=== PATIENT | male | born 1945 | race Caucasian/White ===

== ENCOUNTER 2017-07-30 10:18 | Outpatient (CLI) | payer MEDICARE ==
[2017-07-30 19:37] LABS: BASOPHILS # (AUTO) 0.1 10^3/uL (0.0-0.1); EOSINOPHILS # (AUTO) 0.2 10^3/uL (0.0-0.7); HCT - HEMATOCRIT 52.8 % (42.0-52.0); HGB - HEMOGLOBIN 17.8 g/dL (14.0-18.0); LYMPHOCYTES # (AUTO) 2.3 10^3/uL (1.5-3.5); LYMPHOCYTES % (AUTO) 37.4 %; MEAN CORPUSCULAR HEMOGLOBIN 29.7 pg (27.0-31.0); MEAN CORPUSCULAR HGB CONC 33.7 g/dL (32.0-36.0); MEAN CORPUSCULAR VOLUME 88.3 fL (80.0-94.0); MEAN PLATELET VOLUME 9.7 fL (7.4-11.4); MONOCYTES # (AUTO) 0.7 10^3/uL (0.0-1.0); MONOCYTES % (AUTO) 11.9 %; NEUTROPHILS # (AUTO) 2.8 10^3/uL (1.5-6.6); NEUTROPHILS % (AUTO) 45.7 %; NUCLEATED RED BLOOD CELLS AUTO 0.2 /100WBC; RED BLOOD COUNT 5.97 10^6/uL (4.70-6.10); RED CELL DISTRIBUTION WIDTH 14.8 % (12.0-15.0); UNCORRECTED WHITE BLOOD COUNT 6.1 x10^3/uL; WHITE BLOOD COUNT 6.1 x10^3/uL (4.8-10.8)
[2017-07-30 19:58] LABS: ALBUMIN/GLOBULIN RATIO 1.9 (1.0-2.2); BUN - BLOOD UREA NITROGEN 18 mg/dL (6-20); CALCIUM 9.2 mg/dL (8.5-10.3); CARBON DIOXIDE - CO2 28 mmol/L (21-32); CHLORIDE 106 mmol/L (101-111); CHOL/HDL RATIO 3.4 (<5.0); CHOLESTEROL 111 mg/dL; GFR - MDRD 73 (>89); GLUCOSE 102 mg/dL (70-100); HDL CHOLESTEROL 33 mg/dL; LDL/HDL RATIO 1.5 (<3.6); SODIUM 140 mmol/L (135-145); TOTAL PROTEIN 6.6 g/dL (6.7-8.2); TRIGLYCERIDES 150 mg/dL; VLDL CHOLESTEROL 30 mg/dL
== END 2017-07-30 10:19 | disposition home or self-care (01) ==
LOC: LAB.F 10:18
PROVIDERS: ATTEND Family Medicine
DX: I25.10 Atherosclerotic heart disease of native coronary artery without angina pectoris (principal)
CPT/HCPCS: 36415; 80053; 80061; 85025

== ENCOUNTER 2017-09-03 10:17 | Outpatient (CLI) | payer MEDICARE ==
[2017-09-03 17:58] LABS: BASOPHILS # (AUTO) 0.1 10^3/uL (0.0-0.1); BASOPHILS % (AUTO) 1.3 %; EOSINOPHILS # (AUTO) 0.2 10^3/uL (0.0-0.7); EOSINOPHILS % (AUTO) 3.3 %; HCT - HEMATOCRIT 54.6 % (42.0-52.0); HGB - HEMOGLOBIN 18.1 g/dL (14.0-18.0); LYMPHOCYTES # (AUTO) 2.6 10^3/uL (1.5-3.5); LYMPHOCYTES % (AUTO) 38.5 %; MEAN CORPUSCULAR HEMOGLOBIN 29.5 pg (27.0-31.0); MEAN CORPUSCULAR HGB CONC 33.1 g/dL (32.0-36.0); MEAN CORPUSCULAR VOLUME 89.2 fL (80.0-94.0); MONOCYTES # (AUTO) 0.8 10^3/uL (0.0-1.0); MONOCYTES % (AUTO) 12.3 %; NEUTROPHILS # (AUTO) 2.9 10^3/uL (1.5-6.6); NEUTROPHILS % (AUTO) 44.6 %; NUCLEATED RED BLOOD CELLS AUTO 0.1 /100WBC; RED BLOOD COUNT 6.12 10^6/uL (4.70-6.10); RED CELL DISTRIBUTION WIDTH 14.8 % (12.0-15.0); UNCORRECTED WHITE BLOOD COUNT 6.6 x10^3/uL; WHITE BLOOD COUNT 6.6 x10^3/uL (4.8-10.8)
[2017-09-03 20:58] LABS: PLATELET ESTIMATE, MANUAL NORMAL (130-450,000) (NORMAL); WBC MORPHOLOGY (MULTIPLE) 1+ REACTIVE LYMPHS (NORMAL)
== END 2017-09-03 10:18 | disposition home or self-care (01) ==
LOC: LAB.F 10:17
PROVIDERS: ATTEND Family Medicine
DX: D75.1 Secondary polycythemia (principal)
CPT/HCPCS: 36415; 85025

== ENCOUNTER 2019-08-14 13:05 | Outpatient (CLI) | payer MEDICARE, OTHER | END 2019-08-14 13:06 | disposition home or self-care (01) | LOC: RT 13:05 | PROVIDERS: ATTEND Internal Medicine Gastroenterology | DX: Z86.010 Personal history of colon polyps (principal) | CPT/HCPCS: 93005 ==

== ENCOUNTER 2019-08-25 09:17 | Day surgery (SDC) | payer MEDICARE, OTHER ==
[2019-08-25] MEDS ORDERED: fentaNYL 250 MCG/5 ML VIAL IVP ONE (09:18)
[2019-08-25] MEDS ORDERED: MIDAZOLAM 2 MG/2 ML VIAL IVP ONE (09:18)
[2019-08-25] MEDS ORDERED: LACTATED RINGERS 1,000 ML IV ONE ×3 (09:36→12:23)
[2019-08-25] MEDS ORDERED: LIDO GARGLE 30 ML BOTTLE ONE (11:34)
[2019-08-25] MEDS ORDERED: LIDO GARGLE 30 ML BOTTLE PO ONE (11:35)
[2019-08-25 12:54] VITALS: BP 119/70
== END 2019-08-25 09:18 | disposition home or self-care (01) ==
LOC: SDS 09:17
PROVIDERS: ATTEND Internal Medicine Gastroenterology
PROC: 0DBK8ZZ Excision of Ascending Colon, Via Natural or Artificial Opening Endoscopic (ICD-10-PCS; 2019-08-25)
PROC: 0DBL8ZZ Excision of Transverse Colon, Via Natural or Artificial Opening Endoscopic (ICD-10-PCS; 2019-08-25)
PROC: 0DB38ZX Excision of Lower Esophagus, Via Natural or Artificial Opening Endoscopic, Diagnostic (ICD-10-PCS; principal; 2019-08-25 10:45)
PROC: 0DB28ZX Excision of Middle Esophagus, Via Natural or Artificial Opening Endoscopic, Diagnostic (ICD-10-PCS; 2019-08-25 10:45)
DX: Z12.11 Encounter for screening for malignant neoplasm of colon (principal); K22.10 Ulcer of esophagus without bleeding; K44.9 Diaphragmatic hernia without obstruction or gangrene; D12.4 Benign neoplasm of descending colon; K63.5 Polyp of colon; R94.31 Abnormal electrocardiogram [ECG] [EKG]; E78.5 Hyperlipidemia, unspecified; I25.10 Atherosclerotic heart disease of native coronary artery without angina pectoris; D75.1 Secondary polycythemia; L30.9 Dermatitis, unspecified; H40.9 Unspecified glaucoma; Z79.82 Long term (current) use of aspirin; Z95.5 Presence of coronary angioplasty implant and graft
CPT/HCPCS: 43239; 45380; A9270; J3010; J7120

== ENCOUNTER 2019-10-20 08:00 | Day surgery (SDC) | payer MEDICARE, OTHER ==
[2019-10-20] MEDS ORDERED: LACTATED RINGERS 1,000 ML IV ONE (08:03)
[2019-10-20] MEDS ORDERED: LIDO GARGLE 30 ML BOTTLE ONE (08:31)
[2019-10-20] MEDS ORDERED: MIDAZOLAM 2 MG/2 ML VIAL IVP ONE (08:40)
[2019-10-20] MEDS ORDERED: fentaNYL 100 MCG/2 ML VIAL IVP ONE (08:40)
[2019-10-20 09:29] VITALS: BP 125/81
== END 2019-10-20 08:01 | disposition home or self-care (01) ==
LOC: SDS 08:00
PROVIDERS: ATTEND Internal Medicine Gastroenterology
PROC: 0DB38ZX Excision of Lower Esophagus, Via Natural or Artificial Opening Endoscopic, Diagnostic (ICD-10-PCS; principal; 2019-10-20 09:15)
DX: K21.0 Gastro-esophageal reflux disease with esophagitis (principal); Z79.899 Other long term (current) drug therapy
CPT/HCPCS: 43239; A9270; J7120

== ENCOUNTER 2020-07-21 08:10 | Outpatient (CLI) | payer OTHER ==
[2020-07-21 13:55] VITALS: BP 130/75
--- NOTE | 2020-07-21 13:55 | SLEEP CARE CONSULTATION ---
Information from patient questionnaire entered by Lina Harding. I have reviewed and concur with the information entered by Lina Harding. This document represents the service I personally performed and the decisions made by me, Jennifer Lemons ARNP. History of Present Illness Service Date and Time: 07/21/2020 0810 Reason for Visit: New patient Chief Complaint: reports: Snoring (only on back or right side), Observed pauses in breathing ( says so). denies: Insomnia, Unrefreshed sleep, Excessive daytime sleepiness, Fatigue Date of Onset: maybe a year or so Usual bedtime: 12 am Time it takes to fall asleep: 2 minutes Snores at night: Yes (sometimes) Observed to quit breathing while asleep: Yes (per ) Sleeps alone due to snoring: No Number of times waking at night: 1-2 Reasons for waking at night: reports: Bathroom. denies: Choking, Snoring, Gasping for air Toss, Turn, or Twitch while sleeping: No Recalls having dreams: Yes Usually gets out of bed at: 7-10 am Feels refreshed in the morning: Yes Morning headache: No Sleepy or fatigued during the day: Yes Ever fallen asleep while driving: No Takes day naps: Yes (sometimes) Dreams during day naps: No Prior sleep studies: No Additional HPI information: I had the pleasure of seeing JULIUS KING today regarding the possibility of him having a sleep disorder. His current complaints are observed pauses in yazmin thing and snoring. He states he is here because his has a CPAP machine and she has told him that he has had pauses in his breathing. He states he snores only if he sleeps on his back or right side. He denies unrefreshed sleep or daytime sleepiness. He states he does get up 1-2 times on average for the bathroom. He has a history of coronary heart disease. - Parasomnia Symptoms Ever been unable to move upon waking from sleep: No Walks in sleep: No Talks in sleep: No Ever acted out dreams in sleep: No Ever felt weak in the knees when startled or emotional: No Bothered by creepy, crawly, restless sensations in legs: No Problems with memory or concentration: No Subjective Initial [place] Sleepiness Scale score: 4 (in 2019) Past Medical History Past Medical History: reports: Coronary Heart Disease, Other (history of itching problems, no known cause). denies: Hypertension, Claustrophobia, Congestive Heart Failure, Diabetes, Arrythmia, Hypothyroidism, Anemia, Anxiety, Impotence, Depression, Mood disorder, GERD, Attention deficit Social History The patient's occupation is a Retried. Patient is and lives in [place]. Have you smoked in the past 12 months: No Alcohol use: Yes Alcohol amount and frequency: 2-3 drinks a day Caffeine use: No Family History Family history of sleep disordered breathing: No Family Hx Sleep Apnea: Mother: Snoring, Father: Snoring, Sibling: Snoring Allergies and Home Medications Drug allergies reviewed: Yes (NKDA) Home medication list reviewed: Yes Allergy and home medication list: atorvastatin metoprolol lisinopril gabapentin aspirin Review of Systems Cardiovascular: denies: high blood pressure, palpitations, chest pain, irregular heart rate or pulse, leg or foot swelling Respiratory: denies: shortness of breath, chronic cough Gastrointestinal: denies: heartburn, difficulty swallowing Urinary: denies: impotence Neurological: denies: headaches, seizure, head trauma, speech dysfunction, gait or balance problems Psychiatric: denies: Attention Deficit Hyperactivity, anxiety, depression, mood disorder, claustrophobia Ear/Nose/Throat: reports: dry mouth/throat (only if sleeps with mouth open), tonsillectomy, wisdom teeth removed (may still have a couple). denies: nasal congestion, sinus problems, nose bleeds, injury to nose Endocrine: denies: thyroid disease Musculoskeletal: denies: muscle pain or cramping, mobility problems Immunologic: reports: itching, allergies to food or environment (molds) Physical Exam Blood Pressure: 130/75 Cuff size: regular Heart Rate: 56 O2 Saturation: 96 Height: 6 ft 1.5 in Weight: 208 lb Body Mass Index: 27.1 BMI Classification: Overweight HEENT: No craniofacial malformation Nostrils: patent to airflow Turbinates: normal Septum: deviated left Mouth and throat: narrow oropharynx Soft palate: normal Hard palate: arched Uvula: normal Uvula visualization: 25% Mallampati Class III Tongue: normal in size Tonsils: absent bilaterally Chin and jaw: normal size and position Neck: normal w/o lymphadenopathy or thyromegaly Heart: regular rate and rhythm Lungs: clear bilaterally Impression and Plan 1. Suspected Obstructive Sleep Apnea-Hypopnea Syndrome, as suggested by a history of irregular snoring and observed cessation of breath while asleep. Patient is overweight and has a history of coronary heart disease. Narrow oropharynx and obesity are common predisposing factors for obstructive sleep apnea-hypopnea syndrome. I recommend proceeding to polysomnography to confirm the diagnosis and to assess severity. If the patient has significant sleep disordered breathing, a manual CPAP titration study will also be performed to find the optimal treatment pressure. I informed the patient of what the sleep studies involve and after some discussion, obtained agreement to proceed. The pathophysiology of obstructive sleep apnea-hypopnea syndrome was discussed with the patient and health risks of cardiovascular and cerebrovascular disease if not treated. AAS brochure for obstructive sleep apnea-hypopnea syndrome given and reviewed. Risks of drowsy driving discussed in detail and patient advised to avoid long distance driving and to tap puller at the first sign of drowsiness. Patient agreed to plan. * Schedule polysomnography +- manual CPAP titration study. * Avoid long distance driving or driving when feeling sleepy. * Avoid alcohol, sedative and muscle relaxant around bedtime. * Attempt to lose weight. * Review instructions provided by trained office staff on how to prepare for the sleep study. * Return for follow-up after sleep study completed. Visit Type: In Office Time Spent with Patient (minutes): 30 Provider Statement: I spent 100% of the Face to Face Visit with the patient with greater than 50% spent counseling the patient and coordination of care.
== END 2020-07-21 08:11 | disposition home or self-care (01) ==
LOC: SC 08:10 → MERGE 08:10 → SC 08:11
PROVIDERS: ATTEND Nurse Practitioner Family
DX: R06.81 Apnea, not elsewhere classified (principal); R06.83 Snoring; E66.3 Overweight; Z68.27 Body mass index [BMI] 27.0-27.9, adult; I25.10 Atherosclerotic heart disease of native coronary artery without angina pectoris
CPT/HCPCS: 99204; 99212

== ENCOUNTER 2020-08-19 19:30 | Outpatient (CLI) | payer OTHER | END 2020-08-19 23:59 | disposition home or self-care (01) | LOC: SC 19:30 | PROVIDERS: ATTEND Nurse Practitioner Family | DX: R06.83 Snoring (principal); R06.81 Apnea, not elsewhere classified; I51.9 Heart disease, unspecified | CPT/HCPCS: 95806 ==

== ENCOUNTER 2020-09-06 16:58 | Outpatient (CLI) | payer MEDICARE, OTHER ==
--- NOTE | 2020-09-06 17:20 | SLEEP CARE CONSULTATION ---
Information from patient questionnaire entered by Naveed Galdamez. I have reviewed and concur with the information entered by Naveed Galdamez. This document represents the service I personally performed and the decisions made by , Jennifer Lemons ARNP. History of Present Illness Service Date and Time: 09/06/20201657 Initial [place] Sleepiness Scale score: 4 (in 2019) Current [place] Sleepiness Scale score: 1 Additional HPI information: JULIUS KING returns for follow up and results of the recently performed home sleep study. The patient was informed of the following findings: Patient calculated AHI was 3.6 showing no significant sleep disordered breathing but he did have an elevated supine AHI of 7.7. His study quality was also considered fair due to a partial loss of airflow signal. I explained the pathophysiology behind obstructive sleep apnea. Patient does not have sleep apnea and was advised how weight gain could increase the risk of developing sleep apnea in the future. Patient does not have significant sleep disordered breathing but has elevated AHI in supine position so advised positional therapy. Methods to achieve positional management therapy were discussed; such as, positioning with pillows, wearing a T-shirt with tennis balls sewn into the back, Rematee shirt, Zzomba belt and Slumberbump belt. Pamphlets provided on how to obtain the commercially available products. Patient has light snoring. Snoring can be reduced by weight loss. Weight loss is best achieved with diet consult. Patient instructed to contact PCP for referral. Snoring can also be treated with an oral appliance from a dentist. Advised to check insurance coverage. In addition, an ENT evaluation can be do to see if other treatment is indicated. Sleep Study - Results Type of Sleep Study: Home sleep study Prior sleep studies: No Polysomnography/Home Sleep Study results: SLEEP TIME AND EFFICIENCY: The sleep study recording began at 11:07:13 PM and ended at 08:33:21 AM. Total recording time was 566.1 minutes. The total sleep time was 517.0 minutes. The sleep efficiency was 91.3 percent. The patient spent 148.6 minutes supine, and spent 368.4 minutes non-supine. The patients own estimate of sleep time was 9.40 hours. RESPIRATORY DATA: The AHI in this report is indexed to sleep time based on actigraphy. The AASM defines this as ELIEZER. The AHI on this type 3 Home Sleep Study may understate the AHI determined on a type 1 or 2 study, since EEG is not monitored resulting in the inability to score non-desaturating hypopneas. Based on 4% Calculation: The AHI4% calculation of 3.6 per hour of recording time was based on a total of 25 scored apneas and 6 scored hypopneas with 4% desaturations. Supine AHI4%: 7.7 per hour. Non-supine AHI4%: 2.0 per hour. Oxygen Summary: Patient's baseline O2 saturation was 95.0 %. The patient spent 4.3 minutes at an oxygen saturation less than 90%, and 0.9 minutes less than 85%. The desaturation index was 1.5 events per hour sleep time. The lowest saturation was 70.1 %. SNORING: The percent of the study time spent snoring was 0.0 %. The Snoring Count was 4 . The Snoring Index was 0.5 . PULSE RATE REVIEW: The mean heart rate was 65 beats per minute. The rate ranged from a low of 42 to a high of 94 beats per minute. DIAGNOSIS CODE: suspected Obstructive Sleep Apnea (ICD-10 G47.30) Allergies and Home Medications Drug allergies reviewed: Yes (NKDA) Home medication list reviewed: Yes (no changes) Review of Systems Review of systems same as previous: Yes (no changes) Physical Exam Heart Rate: 64 O2 Saturation: 95 Height: 6 ft 1.5 in Weight: 207 lb Body Mass Index: 26.9 BMI Classification: Overweight Impression and Plan 1. Suspected Obstructive Sleep Apnea-Hypopnea Syndrome, as suggested by a history of loud and irregular snoring, observed cessation of breath while asleep, and excessive daytime sleepiness. Patient has a history of coronary heart disease. Patient HST study quality fair due to partial loss of airflow signal during the study. We got a suboptimal study with an elevated supine AHI of 7.7 and non-supine AHI 2.0. I think we should repeat study in lab to obtain better quality study and adequate measurement of his sleep disordered breathing. Patient declined another study at this time. He was advised to inform any of his doctors/surgeon that he does have mild obstructive sleep apnea when sleeping supine to avoid complications with anesthesia. He was instructed to avoid sleeping supine to reduce his overall health risk from apnea. Since patients apnea is primarily in supine position, patient advised to try positional therapy and agreed with plan. Patient will follow up as needed or if he decides he would like to repeat a sleep study. 2. Snoring but no significant sleep disordered breathing. Patient advised that often weight loss will reduce snoring as well as apnea risk. An oral appliance can also be used for snoring. * Attempt to lose weight * Avoid alcohol consumption near bedtime * The patient is cautioned about driving until sleepiness is completely resolved. * Return as needed for follow up. Counseling Topics: Sleeping position Visit Type: In Office Time Spent with Patient (minutes): 18 Provider Statement: I spent 100% of the Face to Face Visit with the patient with greater than 50% spent counseling the patient and coordination of care.
== END 2020-09-06 16:59 | disposition home or self-care (01) ==
LOC: SC 16:58
PROVIDERS: ATTEND Nurse Practitioner Family
DX: R06.83 Snoring (principal); R06.81 Apnea, not elsewhere classified; G47.10 Hypersomnia, unspecified; I25.10 Atherosclerotic heart disease of native coronary artery without angina pectoris; E66.3 Overweight; Z68.26 Body mass index [BMI] 26.0-26.9, adult
CPT/HCPCS: 99213; G0463; 99212

== ENCOUNTER 2021-05-05 11:02 | Outpatient (CLI) | payer MEDICARE ==
[2021-05-05 15:24] LABS: CHOL/HDL RATIO 2.8 (<5.0); CHOLESTEROL 77 mg/dL; HDL CHOLESTEROL 28 mg/dL; LDL CHOLESTEROL,CALCULATED 29 mg/dL; TRIGLYCERIDES 101 mg/dL; VLDL CHOLESTEROL 20 mg/dL
== END 2021-05-05 11:03 | disposition home or self-care (01) ==
LOC: LAB.S 11:02
PROVIDERS: ATTEND Internal Medicine Cardiovascular Disease
DX: I25.10 Atherosclerotic heart disease of native coronary artery without angina pectoris (principal)
CPT/HCPCS: 36415; 80061; 83721

== ENCOUNTER 2021-06-29 10:42 | Outpatient (CLI) | payer MEDICARE ==
[2021-06-29 15:09] LABS: BASOPHILS # (AUTO) 0.1 10^3/uL (0.0-0.1); BASOPHILS % (AUTO) 1.5 %; EOSINOPHILS # (AUTO) 0.2 10^3/uL (0.0-0.7); EOSINOPHILS % (AUTO) 3.9 %; HCT - HEMATOCRIT 51.9 % (42.0-52.0); HGB - HEMOGLOBIN 17.7 g/dL (14.0-18.0); LYMPHOCYTES # (AUTO) 1.7 10^3/uL (1.5-3.5); LYMPHOCYTES % (AUTO) 31.5 %; MEAN CORPUSCULAR HEMOGLOBIN 30.4 pg (27.0-31.0); MEAN CORPUSCULAR HGB CONC 34.1 g/dL (32.0-36.0); MEAN PLATELET VOLUME 12.2 fL (7.4-11.4); MONOCYTES # (AUTO) 0.6 10^3/uL (0.0-1.0); MONOCYTES % (AUTO) 10.1 %; NEUTROPHILS # (AUTO) 2.8 10^3/uL (1.5-6.6); NEUTROPHILS % (AUTO) 52.1 %; PLT - PLATELET COUNT 158 10^3/uL (130-450); RED BLOOD COUNT 5.83 10^6/uL (4.70-6.10); RED CELL DISTRIBUTION WIDTH 14.7 % (12.0-15.0); WHITE BLOOD COUNT 5.4 x10^3/uL (4.8-10.8)
[2021-06-29 15:16] LABS: SLIDE REVIEW? Indicated
[2021-06-29 15:22] LABS: ALBUMIN 4.2 g/dL (3.2-5.5); ALBUMIN/GLOBULIN RATIO 1.8 (1.0-2.2); BILIRUBIN,TOTAL 1.1 mg/dL (0.2-1.0); CALCIUM 8.8 mg/dL (8.5-10.3); CREATININE 0.9 mg/dL (0.6-1.2); TOTAL PROTEIN 6.6 g/dL (6.7-8.2)
[2021-06-29 15:43] LABS: PLATELET ESTIMATE, MANUAL NORMAL (130-450,000) (NORMAL); PLATELET MORPHOLOGY 1+ GIANT PLATELETS (NORMAL); RBC MORPHOLOGY (MULTIPLE) NORMAL APPEARANCE (NORMAL); WBC MORPHOLOGY (MULTIPLE) NORMAL APPEARANCE (NORMAL)
== END 2021-06-29 10:43 | disposition home or self-care (01) ==
LOC: LAB.S 10:42
PROVIDERS: ATTEND Internal Medicine
DX: D75.1 Secondary polycythemia (principal); Z79.899 Other long term (current) drug therapy; Z12.5 Encounter for screening for malignant neoplasm of prostate
CPT/HCPCS: 36415; 80053; 82728; 85025; G0103; 84153

== ENCOUNTER 2024-05-02 18:02 | Outpatient (CLI) | payer MEDICARE | END 2024-05-02 23:59 | disposition EMS.NT | LOC: EMS 18:02 | DX: S51.011A Laceration without foreign body of right elbow, initial encounter (principal); W01.110A Fall on same level from slipping, tripping and stumbling with subsequent striking against sharp glass, initial encounter; Y93.01 Activity, walking, marching and hiking; Y92.008 Other place in unspecified non-institutional (private) residence as the place of occurrence of the external cause ==

== ENCOUNTER 2024-05-04 08:00 | Outpatient (CLI) | payer MEDICARE ==
--- NOTE | 2024-05-05 08:27 | XRAY Report ---
PROCEDURE: Hip w/Pelvis 2-3V RT INDICATIONS: CONTUSION OF RIGHT HIP TECHNIQUE: 2 views of the hip were acquired. COMPARISON: None. FINDINGS: Bones: No fractures or dislocations. No suspicious bony lesions. Moderate right hip joint degenerat ion. Bony prominence at the junction of the femoral head and neck suggesting CAM impingement. Mild left hip and bilateral sequela joint degeneration. Moderate degenerative disc and facet disease in the lower lumbar spine. Soft tissues: No suspicious soft tissue calcifications or masses. IMPRESSION: 1. Moderate degenerative joint disease. 2. 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 Reviewed by: Emilie Prasad MD on 05/05/2024 7:26 AM RAHUL Approved by: Emilie Prasad MD on 05/05/2024 7:26 AM RAHUL Station ID: [id number]
== END 2024-05-04 23:59 | disposition home or self-care (01) ==
LOC: DI.S 08:00
PROVIDERS: ATTEND Emergency Medicine
DX: M16.0 Bilateral primary osteoarthritis of hip (principal); M47.816 Spondylosis without myelopathy or radiculopathy, lumbar region; M51.36 Other intervertebral disc degeneration, lumbar region

== ENCOUNTER 2024-05-06 13:38 | Emergency (ER) | payer MEDICARE ==
--- NOTE | 2024-05-06 14:30 | ED Physician Documentation ---
History of Present Illness - Stated complaint Stated Complaint: GLF, LOWER BACK/PELVIS PX - Chief complaint Chief Complaint: Back Pain - Additonal information Additional information: 79-year-old male with history of Parkinson's, hypertension, hypercholesterolemia, glaucoma, appendectomy presents emergency department For ongoing right hip pain. Patient was seen at walk-in clinic a couple days ago where he had x-rays done and there was no acute findings or abnormalities. He has been on tramadol since then and pain has gotten worse to the right hip the point where he is now having a hard time ambulating although he still is able to ambulate into the emergency department. No new falls since then. Patient says a couple days ago he lost his balance he fell backward onto tile floor from 2 stairs up onto his right buttocks. No incontinence of bowel or bladder. PD PAST MEDICAL HISTORY - Past Medical History Past Medical History: Yes Cardiovascular: High cholesterol, Hypertension Respiratory: None Neuro: Parkinson's Endocrine/Autoimmune: None GI: GERD : None HEENT: Glaucoma Psych: None Musculoskeletal: None Derm: None - Past Surgical History Past Surgical History: Yes General: EGD, Appendectomy, Colonoscopy Cardiovascular: Coronary stent, Angioplasty HEENT: Tonsil/Adenoidectomy - Present Medications Home Medications: Ambulatory Orders Medication Instructions Recorded Confirmed lisinopriL [Lisinopril] 5 mg PO DAILY 11/13/15 10/19/19 Aspirin [Adult Aspirin Regimen] 81 mg PO DAILY 08/25/19 10/20/19 Atorvastatin Calcium 80 mg PO DAILY 08/25/19 10/19/19 Brimonidine 0.15% Ophth Drops 1 drops OPTH BID 08/25/19 10/19/19 [Alphagan P 0.15% Ophth Drops] Metoprolol Succinate [Toprol Xl] 25 mg PO DAILY 10/19/19 10/20/19 Omeprazole Magnesium [Prilosec] 20 mg PO BID 10/19/19 10/19/19 oxyCODONE [Roxicodone] 5 mg PO Q4-6H PRN #15 tablet 05/06/24 - Allergies Allergies/Adverse Reactions: Allergies Allergy/AdvReac Type Severity Reaction Status Date / Time No Known Drug Allergies Allergy Verified 05/06/24 13:45 - Social History Does the pt smoke?: No Smoking Status: Never smoker Does the pt drink ETOH?: Yes Does the pt have substance abuse?: No - Immunizations Immunizations are current?: No - POLST Patient has POLST: No PD ED PE NORMAL - Vitals Vital signs reviewed: Yes - General General: Alert and oriented X 3, No acute distress, Well developed/nourished - HEENT HEENT: Atraumatic, PERRL - Abdomen Abdomen: Soft - Back Back: No CVA TTP, No spinal TTP - Extremities Extremities: Other (Right hip: No crepitus with range of motion, no weakness, tenderness with flexion extension of the hip as well as of palpation to the right lateral portion of the hip.) Results - Vitals Vitals: Vital Signs - 24 hr 05/06/24 05/06/24 05/06/24 13:45 13:57 14:07 Temperature 35.7 C L Heart Rate 71 77 Respiratory 14 17 20 Rate Blood Pressure 125/71 137/74 H O2 Saturation 96 98 Oxygen O2 Source Room air - Rads (name of study) Pelvis CT without Relevant Findings:: Final report received, EMP independent interpretation of test, Other (No acute bony abnormality of the pelvis and hip, right hip and left hip degenerative arthritis right worse than left prostatomegaly) PD Medical Decision Making - ED course ED course: 79-year-old male presents emergency department forRight hip pain. Recently couple days ago he had negative hip x-rays we decided to pursue a CT scan of the right hip. CT scan reveals no bony abnormalities or findings aside from what appears to be arthritis right side worse in the left side. He said that home tramadol is not working his gave me the tramadol to discard of here and he did note that the oxycodone was helping with symptom management so we went ahead and gave him prescription of oxycodone for pain management at home. I am prescribing a short course of short-acting opioid pain medication for this patient. I have reviewed the patients DIRECTOR TOXICOLOGY and no concerning findings were no aristides. I have discussed that the opioids are for short term therapy only, and will not be refilled from the ED. He was also told to follow-up with his primary care provider for physical therapy referral and Told to follow-up with [facility] for further evaluation. All questions answered and safe for discharge at this time. Departure - Departure Disposition: 01 Home, Self Care Clinical Impression: Right hip pain Contusion of right hip Qualifiers: Encounter type: sequela Qualified Code(s): S70.01XS - Contusion of right hip, sequela Instructions: ED Contusion Hip Follow-Up: [facility] [Provider Group] Prescriptions: oxyCODONE [Roxicodone] 5 mg PO Q4-6H PRN #15 tablet PRN Reason: Pain >8 Comments: Thank you for trusting us with your care. We have completed the CT scan of the pelvis and left hip and what we are seeing is arthritis Actually in both hips but more worse on the right. Of note we are also seeing an enlarged prostate this is in the you want you to follow-up with your primary care provider if this is new information for you. I have copied and pasted below the CT results for your reading. I also recommend following up with [facility] for further evaluation of this to see if there is any more advanced imaging or other things that they may recommend. I am prescribing a short course of narcotic pain medication for you. These are potentially dangerous and addictive medications that should be used carefully. These medications may constipate you. Take an mman-odk-gmfvcom stool softener (docusate) twice daily with plenty of water while taking these medications. If you go 24 hours without a bowel movement, take ltod-xzk-[id number] miralax, per package instructions. Do not drink or drive while taking these medications. If you received narcotic or sedating medications while in the emergency department, do not drive for 24 hours. Store this medication in a safe, secure place and out of reach of children. It is a violation of federal law to give or sell this medication to another person or to use in a manner other than prescribed. The ED will not refill narcotic prescriptions, including prescriptions lost or stolen. To dispose of unwanted medications: 1. [facility] [address] in [place] has a medication drop box. They accept prescription medications (in pill form) Saturday through Saturday 9:00 a.m. to 5:00 p.m. 2. The [facility] accepts prescription medications (in pill form only) for disposal year round. Call for more information. 3. Contact the [facility] for the next [facility], [facility] sponsored prescription drug collection event. , x7310, or x7310; Note that many narcotic pain relievers also contain Tylenol/acetaminophen. Please ensure that your total dose of acetaminophen from all sources does not exceed 3 g (3000 mg) per day. 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 For radiation dose reduction, the following was used: automated exposure control, adjustment of mA and/or kV according to patient size. COMPARISON: None. FINDINGS: Image quality: Excellent. Bones: No acute fracture or or dislocation involving the pelvis and hips. Severe right hip degenerative arthritis and moderate left hip degenerative arthritis. Soft tissues: Moderate prostatomegaly. Calcifications of the vas deferens and branches of the internal iliacs suggests probable long-standing diabetes. Bilateral fat- containing inguinal hernias. IMPRESSION: 1. No acute bony abnormality of the pelvis and hips. 2. Severe right hip degenerative arthritis and moderate left hip degenerative arthritis. 3. Prostatomegaly. 4. Bilateral fat-containing inguinal hernias. Discharge Date/Time: 05/06/24 17:04
[2024-05-06] MEDS: ACETAMINOPHEN 325 MG TABLET PO STA (15:01)
[2024-05-06] MEDS: oxyCODONE 5 MG TABLET PO STA (15:02)
--- NOTE | 2024-05-06 15:56 | CT Report ---
PROCEDURE: Pelvis WO INDICATIONS: right hip pain post fall TECHNIQUE: Noncontrast 3 mm axial sections acquired through the bony pelvis, with coronal and sagittal reformatt ing. For radiation dose reduction, the following was used: automated exposure control, adjustment of mA and/or kV according to patient size. COMPARISON: None. FINDINGS: Image quality: Excellent. Bones: No acute fracture or or dislocation involving the pelvis and hips. Severe right hip degenerat nicola arthritis and moderate left hip degenerative arthritis. Soft tissues: Moderate prostatomegaly. Calcifications of the vas deferens and branches of the operations intern al iliacs suggests probable long-standing diabetes. Bilateral fat-containing inguinal hernias. IMPRESSION: 1. No acute bony abnormality of the pelvis and hips. 2. Severe right hip degenerative arthritis and moderate left hip degenerative arthritis. 3. Prostatomegaly. 4. Bilateral fat-containing inguinal hernias. Reviewed by: Nehemias Padilla MD on 05/06/2024 3:55 PM PDT Approved by: Nehemias Padilla MD on 05/06/2024 3:55 PM PDT Station ID: [id number]
[2024-05-06 16:13] VITALS: BP 137/74; O2SAT 98
[2024-05-06] MEDS: KETOROLAC 30 MG/ML VIAL IM STA (16:50)
== END 2024-05-06 17:04 | disposition home or self-care (01) ==
LOC: ED 13:38
DX: S70.01XA Contusion of right hip, initial encounter (principal); W18.39XA Other fall on same level, initial encounter; M16.11 Unilateral primary osteoarthritis, right hip; N40.0 Benign prostatic hyperplasia without lower urinary tract symptoms
CPT/HCPCS: 72192; 96372; 99284; A9270

== ENCOUNTER 2024-05-16 04:09 | Emergency (ER) | payer MEDICARE ==
--- NOTE | 2024-05-16 04:37 | ED Physician Documentation ---
History of Present Illness - Stated complaint Stated Complaint: cough - Chief complaint Chief Complaint: Resp - History obtained from History obtained from: Patient, Family - Additonal information Additional information: HPI from patient and his spouse (in ED at bedside). Patient c/o 3 days of moist cough, "low grade fever" (per spouse) with Tmax 99.6 (yesterday). Patient denies dyspnea although patient's notes pulse ox at home this evening was 88% (has home finger pulse oximeter). The pulse ox was on room air. Patient does not have pulmonary diagnoses (such as asthma, COPD) and does not use oxygen at home. Denies leg swelling. On ROS, patient reports pleuritic right-sided chest pain. PD PAST MEDICAL HISTORY - Past Medical History Cardiovascular: High cholesterol, Hypertension Respiratory: None Neuro: Parkinson's Endocrine/Autoimmune: None GI: GERD : None HEENT: Glaucoma Psych: None Musculoskeletal: None Derm: None - Past Surgical History Past Surgical History: Yes General: EGD, Appendectomy, Colonoscopy Cardiovascular: Coronary stent, Angioplasty HEENT: Tonsil/Adenoidectomy - Present Medications Home Medications: Ambulatory Orders Medication Instructions Recorded Confirmed lisinopriL [Lisinopril] 5 mg PO DAILY 11/13/15 05/16/24 Aspirin [Adult Aspirin Regimen] 81 mg PO DAILY 08/25/19 05/16/24 Atorvastatin Calcium 80 mg PO DAILY 08/25/19 05/16/24 Brimonidine 0.15% Ophth Drops 1 drops OPTH DAILY 08/25/19 05/16/24 [Alphagan P 0.15% Ophth Drops] Metoprolol Succinate [Toprol Xl] 25 mg PO DAILY 10/19/19 05/16/24 Omeprazole Magnesium [Prilosec] 20 mg PO BID 10/19/19 05/16/24 oxyCODONE [Roxicodone] 5 mg PO Q4-6H PRN #15 tablet 05/06/24 05/16/24 Amox/Clav 875/125 [Augmentin 1 tablet PO Q12H #13 tablet 05/16/24 875/125 Tab] Azithromycin [Zithromax] 250 mg PO DAILY #4 tablet 05/16/24 Carbidopa/Levodopa 2 tab PO TID 05/16/24 05/16/24 [Carbidopa-Levodopa 25-100 Tab] Cholecalciferol (Vitamin D3) 1,000 unit PO DAILY 05/16/24 05/16/24 [Vitamin D3] Gabapentin [Neurontin] 600 mg PO DAILY 05/16/24 05/16/24 - Allergies Allergies/Adverse Reactions: Allergies Allergy/AdvReac Type Severity Reaction Status Date / Time No Known Drug Allergies Allergy Verified 05/16/24 04:15 - Social History Does the pt smoke?: No Smoking Status: Never smoker Does the pt drink ETOH?: Yes Does the pt have substance abuse?: No - Immunizations Immunizations are current?: No - POLST Patient has POLST: No PD ED PE NORMAL - Vitals Vital signs reviewed: Yes - General General: Alert and oriented X 3, No acute distress, Well developed/nourished - Cardiac Cardiac: RRR, No murmur - Respiratory Respiratory: No respiratory distress, Other (diminished breath sounds right mid/lower lung altamirano) Results - Vitals Vitals: Vital Signs - 24 hr 05/16/24 05/16/24 04:15 05:05 Temperature 36.4 C L Heart Rate 94 71 Respiratory 16 14 Rate Blood Pressure 134/85 H 117/74 O2 Saturation 96 99 Oxygen O2 Source Room air - Labs Labs: Laboratory Tests 05/16/24 04:47 Nasal Adenovirus (PCR) NOT DETECTED Nasal B. parapertussis DNA (PCR) NOT DETECTED Nasal Coronavir 229E PCR NOT DETECTED Nasal Coronavir HKU1 PCR NOT DETECTED Nasal Coronavir NL63 PCR NOT DETECTED Nasal Coronavir OC43 PCR NOT DETECTED Nasal Enterovir/Rhinovir PCR NOT DETECTED Nasal Influenza B PCR NOT DETECTED Nasal Influenza A PCR NOT DETECTED Nasal Parainfluen 1 PCR NOT DETECTED Nasal Parainfluen 2 PCR NOT DETECTED Nasal Parainfluen 3 PCR NOT DETECTED Nasal Parainfluen 4 PCR NOT DETECTED Nasal RSV (PCR) NOT DETECTED Nasal B.pertussis DNA PCR NOT DETECTED Nasal C.pneumoniae (PCR) NOT DETECTED Rohit Human Metapneumo PCR NOT DETECTED Nasal M.pneumoniae (PCR) NOT DETECTED Nasal SARS-CoV-2 (PCR) NOT DETECTED - Rads (name of study) chest xray Relevant Findings:: Prelim report reviewed, EMP independent interpretation of test (I reviewed these images and my interpretation is right middle lobe infiltrate with near-consolidation and small right pleural effusion), See rad report PD Medical Decision Making - ED course Complexity details: reviewed results, re-evaluated patient, considered differential, d/w patient, d/w family ED course: mid-90s pulse ox on room air in ED and in NAD. Negative respiratory PCR panel. CXR demonstrates RML infiltrate c/w pneumonia. He is given 875mg PO augmentin and 500mg PO azithromycin and I have electronically submitted these antibiotics to patient's pharmacy of choice. Results reviewed with patient/spouse, return precautions discussed. Departure - Departure Disposition: Home, Self Care Clinical Impression: Pneumonia Condition: Good Instructions: ED Pneumonia Adult Prescriptions: Amox/Clav 875/125 [Augmentin 875/125 Tab] 1 tablet PO Q12H #13 tablet Azithromycin [Zithromax] 250 mg PO DAILY #4 tablet Comments: Your chest x-ray shows pneumonia in the middle lobe of your right lung. You were given 2 different antibiotics in the emergency department for this (Augmentin and azithromycin), and I have electronically submitted prescriptions for both of these antibiotics to the [facility] pharmacy in [place]. Note that the course of azithromycin will total 5 days (including the dose given in the emergency department), whereas the Augmentin total 1 week. Discharge Date/Time: 05/16/24 06:56
[2024-05-16 05:11] VITALS: BP 117/74; O2SAT 99
[2024-05-16 06:12] LABS: B. PARAPERTUSSIS- RESP PCR PAN NOT DETECTED; B. PERTUSSIS- RESP PCR PANEL NOT DETECTED; C. PNEUMONIAE- RESP PCR PANEL NOT DETECTED; CORONAVIRUS 229E-RESP PCR NOT DETECTED; CORONAVIRUS HKU1-RESP PCR NOT DETECTED; CORONAVIRUS NL63-RESP PCR NOT DETECTED; CORONAVIRUS OC43-RESP PCR NOT DETECTED; HUMAN METAPNEUMOVIRUS NOT DETECTED; INFLUENZA A- RESP PCR PANEL NOT DETECTED; INFLUENZA B - RESP PCR PANEL NOT DETECTED; M. PNEUMONIAE- RESP PCR PANEL NOT DETECTED; PARAINFLUENZA VIRUS 1 NOT DETECTED; PARAINFLUENZA VIRUS 2 NOT DETECTED; PARAINFLUENZA VIRUS 3 NOT DETECTED; PARAINFLUENZA VIRUS 4 NOT DETECTED; RHINOVIRUS/ENTEROVIRUS NOT DETECTED; RSV- RESP PCR PANEL NOT DETECTED; SARS-CoV-2 -RESP PCR PANEL NOT DETECTED
[2024-05-16] MEDS: AZITHROMYCIN 250 MG TABLET PO STA (06:50)
[2024-05-16] MEDS: AMOX/CLAV 875 MG/125 MG TABLET PO STA (06:50)
--- NOTE | 2024-05-16 08:01 | XRAY Report ---
PROCEDURE: Chest 2V INDICATIONS: cough TECHNIQUE: 2 views of the chest were acquired. COMPARISON: None. FINDINGS: Surgical changes and devices: None. Lungs and pleura: Lobar pneumonia likely in the right middle lobe. Small right pleural effusion. Mediastinum: Normal heart size Bones and chest wall: Degenerative changes IMPRESSION: Right middle lobar pneumonia with small adjacent effusion. Agree with preliminary report. Comment: Recommend surveillance imaging to exclude underlying lesion. Reviewed by: Tim Taylor MD on 05/16/2024 7:59 AM PDT Approved by: Tim Taylor MD on 05/16/2024 7:59 AM PDT Station ID: [id number]
== END 2024-05-16 06:56 | disposition home or self-care (01) ==
LOC: ED 04:09
DX: J18.9 Pneumonia, unspecified organism (principal); I10 Essential (primary) hypertension; Z20.818 Contact with and (suspected) exposure to other bacterial communicable diseases; Z20.822 Contact with and (suspected) exposure to COVID-19; Z20.828 Contact with and (suspected) exposure to other viral communicable diseases
CPT/HCPCS: 71046; 87633; 99284; A9270